=== PATIENT | male | born 1965 | race Caucasian/White ===

== ENCOUNTER 2021-03-17 12:33 | Emergency (ER) | payer OTHER, SELFPAY ==
[2021-03-17 12:34] VITALS: BP 142/96; PULSE 99; RESP 16; TEMP 36.7; O2SAT 97; BMI 30.8
--- NOTE | 2021-03-17 12:36 | RAD_ITS ---
STUDY: X-RAY - LEFT ANKLE REASON FOR EXAM: Male, 55 years old. INJURY TECHNIQUE: 3 view(s) of the ankle. COMPARISON: None. FINDINGS: Normal visualized distal tibia and fibula. Acute medially displaced transverse fracture through the lateral malleolus the fibula. Normal tibiotalar articulation and ankle mortise. Normal visualized talus and calcaneus. Moderate-sized plantar calcaneal enthesophyte which may be fractured. The visualized subtalar, talonavicular, calcaneocuboid and tarsal articulations are normal. The soft tissue structures are unremarkable. RAD/Ankle min 3 Views IMPRESSION: Acute medially displaced transverse fracture through the lateral malleolus the fibula. Electronically Signed: J Luis Mcnamara MD at 12:54 EDT Tel , Service support ,
--- NOTE | 2021-03-17 13:53 | ED.VIS.LOWEX ---
HPI History of Present Illness Chief Complaint: Lower Extremity Injury Informant: patient Narrative Narrative: Patient was on a horse. The horse bucked. He went up in the air and then his foot landed twisted in the stirrup. He never fell off the horse. He has lateral ankle pain. No other areas of pain. Weightbearing and pressing makes it worse. Rest makes it better. This just happened today. PFSH PFSH Medical History no medical history Home Medications NK 03/17/21 [History Last Taken Unknown] Allergy/AdvReac Type Severity Reaction Status Date / Time amoxicillin Allergy Hives Verified 03/17/21 12:34 Family History no significant family his Social History Smoking Status: Never smoker ROS ROS ED Constitutional Constitutional ED: Denies fever(s) Gastrointestinal Gastrointestinal: Denies nausea or vomiting Musculoskeletal Musculoskeletal: Reports arthralgias and other Details: See history of present illness. Integumentary Denies Abrasions or rash Neurologic Neurologic: Denies paresthesias or weakness Hematologic/Lymphatic Hematologic/Lymphatic: Denies easy bleeding or easy bruising EXAM Physical Exam Const Vital Signs: 03/17/21 12:34 Temperature 98.1 F Temperature Source Temporal Pulse Rate 99 Respiratory Rate 16 Blood Pressure 142/96 H Blood Pressure Mean 111 Pulse Ox 97 Oxygen Delivery Method Room Air Positive well nourished and well developed General Appearance ED: well developed and NAD HEENT atraumatic Resp normal respiratory effort Back/Spine no CVA tenderness Lumbar Spine / Lower Back: Negative for lumbar spinal tenderness Extremity Extremity Narrative: Patient does have a small amount of swelling at the lateral malleolus only. He is stable with stressing of the joint. No tenderness medial malleolus fifth metatarsal forefoot or calcaneus. No proximal tenderness up the leg. Achilles is intact by both palpation and Johnson test. Neuro Sensorium / Orientation: alert Psych mental status grossly normal Skin Lesions: no lesions Rashes: no rashes MDM MDM MDM Narrative Medical decision making narrative: Three-view x-ray of the ankle looked at by me and read by radiology shows a transverse fracture through the distal aspect of the lateral malleolus. There is some mild displacement. However the mortise looks good. This does need follow-up x-ray imaging. Will hopefully not need surgery. I explained that it is important to follow-up and have an x-ray within about the next week. Radiography Diagnostic Testing: Clinical Impression(s) from Imaging Studies Ankle X-Ray 03/17/21 12:36 IMPRESSION: Acute medially displaced transverse fracture through the lateral malleolus the fibula. Electronically Signed: J Luis Mcnamara MD at 12:54 EDT Tel , Service support , Discharge Plan Triage Chief Complaint: Lower Extremity Injury ED Provider: Familia Pearce Dx/Rx/DC Orders Clinical Impression: Injury while horseback riding, Closed left fibular fracture Instructions: ED Ankle Fracture, Distal Fibula Prescriptions: No Action NK RF: 0 Primary Care Provider: Rajiv Calderon,Out of Referrals: Pedro Huitron DO [STAFF PHYSICIAN] - 5-7 Days [facility] Doctor,Out of [Primary Care Provider] - Disposition Disposition: Home, Self Care
[2021-03-17 15:00] VITALS: PULSE 74; RESP 16; O2SAT 97
== END 2021-03-17 15:02 | disposition home or self-care (01) ==
PROVIDERS: Emergency Provider Emergency Medicine
DX: S82.62XA Displaced fracture of lateral malleolus of left fibula, initial encounter for closed fracture (principal); X50.1XXA Overexertion from prolonged static or awkward postures, initial encounter; Y93.52 Activity, horseback riding; Y92.89 Other specified places as the place of occurrence of the external cause; Y99.8 Other external cause status
CPT/HCPCS: 73610; 99284